=== PATIENT | male | born 1990 | race Caucasian/White ===

== ENCOUNTER 2021-08-21 07:57 | Emergency (ER) | payer SELFPAY ==
[~2021-08-21] VITALS: Ht 175.3 cm; Wt 122.5 kg
[2021-08-21] MEDS ORDERED: FLONASE ALLERG9.9 ML INH (08:26)
[2021-08-21] MEDS ORDERED: AUGMENTIN 500-1 EACH PO (08:26)
[2021-08-21] MEDS ORDERED: PREDNISONE50 MG PO (08:26)
== END 2021-08-21 08:32 | disposition home or self-care (01) ==
LOC: ER 08:10
DX: J32.9 Chronic sinusitis, unspecified (principal)
CPT/HCPCS: 99282

== ENCOUNTER 2022-05-07 03:22 | Emergency (ER) | payer SELFPAY ==
[~2022-05-07] VITALS: Ht 177.8 cm; Wt 131.1 kg
[~2022-05-07 03:22] MED LIST: AUGMENTIN 500-1 EACH PO; FLONASE ALLERG9.9 ML INH; PREDNISONE50 MG PO
[2022-05-07] MEDS ORDERED: NAPROSYN500 MG PO (03:40)
[2022-05-07] MEDS ORDERED: AMOX TR-K CLV1 EAC2 PO (03:41)
== END 2022-05-07 03:48 | disposition home or self-care (01) ==
LOC: ER 03:38
DX: R51.9 Headache, unspecified (principal); J32.9 Chronic sinusitis, unspecified
CPT/HCPCS: 99282